=== PATIENT | female | born 1990 | race Caucasian/White ===

== ENCOUNTER 2017-01-11 19:57 | Emergency (ER) | payer OTHER ==
[2017-01-11] MEDS ORDERED: oxyCOD/ACETAMIN 5 MG/325 MG TABLET PO STA (20:54)
[2017-01-11] MEDS ORDERED: oxyCOD/ACETAMIN 5 MG/325 MG TABLET PO ONE (21:00)
--- NOTE | 2017-01-11 21:00 | XRAY Preliminary Report ---
Exam: XR Hand 3 View LT IMPRESSION: Normal hand radiography. [facility] SITE ID: [id number]
--- NOTE | 2017-01-11 21:01 | XRAY Preliminary Report ---
Exam: XR Wrist 4 View LT IMPRESSION: Normal wrist radiography. [facility] SITE ID: [id number]
--- NOTE | 2017-01-11 21:02 | XRAY Report ---
EXAM: LEFT HAND RADIOGRAPHY EXAM DATE: 01/11/2017 08:37 PM. CLINICAL HISTORY: Trauma, pain. COMPARISON: None. TECHNIQUE: 3 views. FINDINGS: Bones: Normal. No fractures or bone lesions. Joints: Normal. No subluxations. Soft Tissues: Unremarkable. IMPRESSION: Normal hand radiography. [facility] Referring Provider Line: [phone] SITE ID: [id number]
--- NOTE | 2017-01-11 21:03 | XRAY Report ---
EXAM: LEFT WRIST RADIOGRAPHY EXAM DATE: 01/11/2017 08:37 PM. CLINICAL HISTORY: Trauma, pain. COMPARISON: None. TECHNIQUE: 4 views. FINDINGS: Bones: Normal. No fractures or bone lesions. Joints: Normal. No subluxations. Soft Tissues: Unremarkable. IMPRESSION: Normal wrist radiography. [facility] Referring Provider Line: [phone] SITE ID: [id number]
--- NOTE | 2017-01-11 21:12 | ED Physician Documentation ---
PD HPI UPPER EXT INJURY - Stated complaint Stated Complaint: FELL LT HAND INJ - Chief complaint Chief Complaint: Ext Problem - History obtained from History obtained from: Patient - History of Present Illness Location: Left, Wrist, Hand Type of injury: Fall Where injury occurred: Home Timing - onset: How many hours ago (1) Timing - duration: Seconds Timing - details: Abrupt onset Improved by: Immobilization Associated symptoms: No: Weakness Similar symptoms before: Has not had sx before Recently seen: Not recently seen - Additonal information Additional information: Patient is a 26 year old female with no significant past medical history who is presenting to the emergency department for wrist pain. Patient states that she was walking her dog and it ran off, pulling her forward, landing on her two hands. Patient states that she had the worst pain in her ulnar side of her hand and wrist. Review of Systems Constitutional: denies: Fever, Chills Eyes: reports: Reviewed and negative Ears: denies: Drainage/discharge Nose: denies: Epistaxis Throat: denies: Dental pain / toothache Cardiac: reports: Reviewed and negative GI: denies: Nausea, Vomiting : reports: Reviewed and negative Skin: reports: Abrasion (s). denies: Laceration (s) Musculoskeletal: reports: Extremity pain, Joint pain, Extremity swelling Neurologic: reports: Numbness. denies: Difficulty speaking, Headache, Head injury, LOC Psychiatric: reports: Reviewed and negative Endocrine: reports: Reviewed and negative Immunocompromised: reports: Reviewed and negative PD PAST MEDICAL HISTORY - Past Medical History Past Medical History: No - Past Surgical History Past Surgical History: No - Present Medications Home Medications: Ambulatory Orders Medication Instructions Recorded Confirmed No Known Home Medications [No 01/11/17 01/11/17 Known Home Medications] - Allergies Allergies/Adverse Reactions: Allergies Allergy/AdvReac Type Severity Reaction Status Date / Time No Known Drug Allergies Allergy Verified 01/11/17 20:02 - Social History Does the pt smoke?: Yes Smoking Status: Light tobacco smoker Does the pt drink ETOH?: No Does the pt have substance abuse?: No - Immunizations Immunizations are current?: Yes - POLST Patient has POLST: No PD ED PE NORMAL - Vitals Vital signs reviewed: Yes - General General: Alert and oriented X 3, Well developed/nourished - HEENT HEENT: Atraumatic, PERRL - Neck Neck: No bony TTP - Cardiac Cardiac: RRR, No murmur - Respiratory Respiratory: No respiratory distress - Abdomen Abdomen: Non distended - Neuro Neuro: Alert and oriented X 3, No motor deficit, No sensory deficit - Psych Psych: Normal mood, Normal affect PD ED PE EXPANDED - Extremities Extremities: Abrasion (abrasions of both palms), Left wrist (tenderness and mild swelling of ulnar wrist, and hand pain. full rom), Motor intact, Sensory intact, Vascular intact, Tendon intact Results - Vitals Vitals: Vital Signs - 24 hr 01/11/17 19:59 Temperature 36.9 C Heart Rate 103 H Respiratory 18 Rate Blood Pressure 124/82 H O2 Saturation 100 Oxygen O2 Source Room air - Rads (name of study) left hand/wrist x-ray Radiology: Final report received (no acute fracture or dislocation) PD MEDICAL DECISION MAKING - ED course Complexity details: reviewed old records, reviewed results, re-evaluated patient , considered differential, d/w patient ED course: Patient was seen and examined at bedside. patient was treated with ice and a percocet and sent for imaging. when patient returned the results were reviewed. there was no acute fracture or dislocation. Patient's wounds were cleaned and patient was placed in a splint for comfort. Patient required no further work up and was stable for discharge with outpatient follow up. Departure - Departure Disposition: 01 Home, Self Care Clinical Impression: Left wrist sprain Condition: Good Instructions: ED Sprain Wrist Follow-Up: primary,care provider [Other] - As Needed Comments: Your x-rays today were within normal limits. there is no acute fracture or dislocation. You should continue to ice your wrist and take motrin or tylenol as needed for pain. If the pain persists for more than two weeks you should follow up with the base doctor. You can wear the brace as needed for comfort. Forms: Activity restrictions
[2017-01-11] MEDS ORDERED: BACITRACIN OINT TOP ONE (21:17)
[2017-01-11 21:20] VITALS: BP 107/72
== END 2017-01-11 21:23 | disposition home or self-care (01) ==
LOC: ED 19:57
DX: S63.502A Unspecified sprain of left wrist, initial encounter (principal); W19.XXXA Unspecified fall, initial encounter; Y92.009 Unspecified place in unspecified non-institutional (private) residence as the place of occurrence of the external cause; F17.200 Nicotine dependence, unspecified, uncomplicated
CPT/HCPCS: 73110; 73130; 99283; A9270

== ENCOUNTER 2017-02-23 08:36 | Outpatient (CLI) | payer OTHER ==
--- NOTE | 2017-02-23 11:14 | MRI Report ---
EXAM: LEFT WRIST MRI WITHOUT CONTRAST EXAM DATE: 02/23/2017 09:55 AM. CLINICAL HISTORY: Left wrist pain and fall 1.5 months ago. COMPARISON: None. TECHNIQUE: Multiplanar, multisequence T1-weighted and fluid-sensitive sequences of the wrist without contrast. Other: None. FINDINGS: Bones: There is a subacute appearing intra-articular comminuted fracture at the mid to distal aspects of the capitate. The dorsal distal fracture fragment appears to be displaced dorsally by approximate ly 1.5 mm. Marrow edema within most of the capitate. Mild marrow edema and small cyst within the trap ezoid. Mild marrow edema at the dorsal aspect of the triquetrum. Small subcortical cyst at the volar aspect of trapezium. Small subcortical cysts at the proximal aspect of the first metacarpal. No dislo cation. Cartilage: The articular cartilage is unremarkable. The triangular fibrocartilage complex is unremark able. Ligaments: The scapholunate and lunotriquetral ligaments are intact. The visualized other intrinsic, extrinsic and collateral ligaments are unremarkable. Tendons: The extensor compartment I through and flexor tendons are unremarkable. Musculature: No edema or fatty atrophy. Other: The contents of the carpal tunnel, including the median nerve, are unremarkable. Guyons canal is unremarkable. No ganglion cysts. No joint effusions. The subcutaneous tissues are unremarkable. IMPRESSION: 1. Subacute appearing intra-articular comminuted fracture at the mid to distal aspects of the capitat e. The dorsal distal fracture fragment is minimally displaced dorsally by approximately 1.5 mm. If wa rranted, a follow-up CT exam may be helpful to evaluate for areas of bony union between the fracture fragments. 2. Mild bone contusion within the trapezoid and triquetrum. [facility] MUSCULOSKELET[facility] RADIOLOGY SECTION Attempts to contact Dr. Clifton Garcia on 02/23/2017 were not successful. The report will be faxed to Dr. Garcia's office. Referring Provider Line: [phone] SITE ID: [id number]
== END 2017-02-23 08:37 | disposition home or self-care (01) ==
LOC: DI 08:36
PROVIDERS: ATTEND Radiology Diagnostic Radiology
DX: S62.132A Displaced fracture of capitate [os magnum] bone, left wrist, initial encounter for closed fracture (principal)

== ENCOUNTER 2018-02-12 19:27 | Emergency (ER) | payer OTHER ==
[2018-02-12 19:40] VITALS: BP 129/75
[2018-02-12 19:54] LABS: BILIRUBIN,URINE NEGATIVE (NEGATIVE); GLUCOSE, URINE (UA) NEGATIVE (NEGATIVE); KETONES,URINE (UA) NEGATIVE (NEGATIVE); LEUKOCYTE ESTERASE, URINE SMALL (NEGATIVE); NITRITE,URINE NEGATIVE (NEGATIVE); OCCULT BLOOD,URINE MODERATE (NEGATIVE); PROTEIN,URINE NEGATIVE (NEGATIVE); UROBILINOGEN,URINE 0.2 (NORMAL) E.U./dL (NORMAL)
[2018-02-12 19:56] LABS: CLARITY,URINE CLEAR (CLEAR)
[2018-02-12 19:57] LABS: HCG UR QUAL NEGATIVE
[2018-02-12 20:03] LABS: BACTERIA,URINE Many /HPF (None Seen); SQUAMOUS EPITHELIAL CELL,UR NONE SEEN (<= Few); WBC CLUMPS,URINE PRESENT
--- NOTE | 2018-02-12 20:06 | ED Physician Documentation ---
PD HPI FEMALE - Stated complaint Stated Complaint: ABD PX/FEM /URGENCY/VOMITING - Chief complaint Chief Complaint: Abd Pain - History obtained from History obtained from: Patient - History of Present Illness Timing - onset: Today (this morning) Timing - details: Abrupt onset Associated symptoms: Pelvic pain (suprapubic), Dysuria, Urinary frequency. 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 2014 - Past Surgical History Past Surgical History: No - Present Medications Home Medications: Ambulatory Orders Medication Instructions Recorded Confirmed Nitrofurantoin Monohyd/M-Cryst 100 mg PO BID #10 capsule 02/12/18 [Macrobid 100 mg Capsule] - Allergies Allergies/Adverse Reactions: Allergies Allergy/AdvReac Type Severity Reaction Status Date / Time No Known Drug Allergies Allergy Verified 02/12/18 19:40 - Social History Does the pt smoke?: Yes Smoking Status: Current every day smoker Does the pt drink ETOH?: No Does the pt have substance abuse?: No - Immunizations Immunizations are current?: Yes - POLST Patient has POLST: No PD ED PE NORMAL - Vitals Vital signs reviewed: Yes - General General: Alert and oriented X 3, No acute distress, Well developed/nourished - Abdomen Abdomen: Soft, Non tender - Back Back: No CVA TTP Results - Vitals Vitals: Vital Signs - 24 hr 02/12/18 19:34 Temperature 36.6 C Heart Rate 71 Respiratory 16 Rate Blood Pressure 129/75 O2 Saturation 100 Oxygen O2 Source Room air - Labs Labs: Laboratory Tests 02/12/18 02/12/18 19:37 19:37 Urine Color LIGHT YELLOW Urine Clarity CLEAR Urine pH 6.0 Ur Specific [place] <=1.005 <=1.005 Urine Protein NEGATIVE Urine Glucose (UA) NEGATIVE Urine Ketones NEGATIVE Urine Occult Blood MODERATE H Urine Nitrite NEGATIVE Urine Bilirubin NEGATIVE Urine Urobilinogen 0.2 (NORMAL) Ur Leukocyte Esterase SMALL H Urine RBC 11-25 H Urine WBC >25 H Urine WBC Clumps PRESENT Ur Squamous Epith Cells NONE SEEN Urine Bacteria Many H Ur Microscopic Review INDICATED Urine Culture Comments INDICATED Urine HCG, Qual NEGATIVE PD MEDICAL DECISION MAKING - ED course Complexity details: reviewed results, considered differential, d/w patient Departure - Departure Disposition: 01 Home, Self Care Clinical Impression: Cystitis Condition: Good Instructions: ED UTI Cystitis Female Follow-Up: [facility] [Provider Group] [facility] [Provider Group] Prescriptions: Nitrofurantoin Monohyd/M-Cryst [Macrobid 100 mg Capsule] 100 mg PO BID #10 capsule Discharge Date/Time: 02/12/18 20:23
[2018-02-12] MEDS ORDERED: NITROFURANTOIN MACRO 100 MG CAPSULE PO STA (20:14)
[2018-02-12] MEDS ORDERED: PHENAZOPYRIDINE 100 MG TABLET PO STA (20:14)
== END 2018-02-12 20:23 | disposition home or self-care (01) ==
LOC: ED 19:27
DX: N30.90 Cystitis, unspecified without hematuria (principal); F17.200 Nicotine dependence, unspecified, uncomplicated
CPT/HCPCS: 81001; 81025; 87086; 99283; A9270; 81003; 87181

== ENCOUNTER 2018-06-08 21:54 | Emergency (ER) | payer OTHER ==
[2018-06-08 22:22] LABS: BILIRUBIN,URINE NEGATIVE (NEGATIVE); GLUCOSE, URINE (UA) NEGATIVE (NEGATIVE); KETONES,URINE (UA) NEGATIVE (NEGATIVE); LEUKOCYTE ESTERASE, URINE LARGE (NEGATIVE); NITRITE,URINE NEGATIVE (NEGATIVE); OCCULT BLOOD,URINE MODERATE (NEGATIVE); PH,URINE 7.5 PH (5.0-7.5); PROTEIN,URINE NEGATIVE (NEGATIVE); UROBILINOGEN,URINE 0.2 (NORMAL) E.U./dL (NORMAL)
[2018-06-08 22:32] LABS: BACTERIA,URINE Rare /HPF (None Seen); CLARITY,URINE CLEAR (CLEAR); HCG UR QUAL NEGATIVE; RBC,URINE 0-5 /HPF (0-5); SQUAMOUS EPITHELIAL CELL,UR NONE SEEN (<= Few); WBC CLUMPS,URINE PRESENT
[2018-06-08] MEDS ORDERED: AMOX/CLAV 875 MG/125 MG TABLET PO STA (22:55)
[2018-06-08] MEDS ORDERED: PHENAZOPYRIDINE 100 MG TABLET PO STA (22:55)
--- NOTE | 2018-06-08 23:02 | ED Physician Documentation ---
PD HPI FEMALE - Stated complaint Stated Complaint: POSS KIDNEY INF - Chief complaint Chief Complaint: UTI - History obtained from History obtained from: Patient - History of Present Illness Timing - onset: Today Timing - duration: Hours (5) Timing - details: Abrupt onset, Still present Associated symptoms: Dysuria, Urinary frequency Contributing factors: No: Similar symptoms before: Diagnosis (pyelo) Recently seen: Emergency Dept - Additional information Additional information: 28-year-old female with a previous history of urinary tract infection and a recent history of pyelonephritis 1 month ago seen at [facility] has developed urinary symptoms again. She notes the symptoms present for about 5 hours and she states the symptoms are obvious and irritating. She is been into the bathroom 5 times and she is been to the emergency department. She denies any pain in her back this time and she denies any nausea or vomiting. She denies any chance of . 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 - Past Surgical History Past Surgical History: Yes HEENT: Tonsil/Adenoidectomy - Present Medications Home Medications: Ambulatory Orders Medication Instructions Recorded Confirmed Amox/Clav 875/125 [Augmentin] 1 each PO Q12H #10 tablet 06/08/18 - Allergies Allergies/Adverse Reactions: Allergies Allergy/AdvReac Type Severity Reaction Status Date / Time No Known Drug Allergies Allergy Verified 06/08/18 22:09 - Social History Does the pt smoke?: No Smoking Status: Never smoker Does the pt drink ETOH?: No Does the pt have substance abuse?: No - Immunizations Immunizations are current?: Yes - POLST Patient has POLST: No PD ED PE NORMAL - Vitals Vital signs reviewed: Yes (hypertensive) - General General: Alert and oriented X 3, No acute distress, Well developed/nourished - HEENT HEENT: Atraumatic, PERRL, EOMI - Neck Neck: Supple, no meningeal sign - Cardiac Cardiac: RRR, No murmur - Respiratory Respiratory: No respiratory distress, Clear bilaterally - Abdomen Abdomen: Soft, Non tender - Back Back: No CVA TTP, No spinal TTP - Derm Derm: Normal color, Warm and dry, No rash - Extremities Extremities: No deformity, No edema - Neuro Neuro: Alert and oriented X 3, bale piler 2-12 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 YELLOW Urine Clarity CLEAR Urine pH 7.5 Ur Specific [place] <=1.005 <=1.005 Urine Protein NEGATIVE Urine Glucose (UA) NEGATIVE Urine Ketones NEGATIVE Urine Occult Blood MODERATE H Urine Nitrite NEGATIVE Urine Bilirubin NEGATIVE Urine Urobilinogen 0.2 (NORMAL) Ur Leukocyte Esterase LARGE H Urine RBC 0-5 Urine WBC 11-25 H Urine WBC Clumps PRESENT Ur Squamous Epith Cells NONE SEEN Urine Bacteria Rare Ur Microscopic Review INDICATED Urine Culture Comments INDICATED Urine HCG, Qual NEGATIVE PD MEDICAL DECISION MAKING - ED course Complexity details: considered differential, d/w patient ED course: Previously well 28-year-old female with a history of urinary tract infection has developed signs and symptoms this evening and has urinary tract infection on evaluation of the urinary sediment under the microscope. She is administered Augmentin as she has had a prior extended spectrum beta-lactamase positive E. coli. Departure - Departure Disposition: 01 Home, Self Care Clinical Impression: Urinary tract infection Qualifiers: Urinary tract infection type: acute cystitis Hematuria presence: without hematuria Qualified Code(s): N30.00 - Acute cystitis without hematuria Condition: Stable Instructions: ED UTI Cystitis Female Follow-Up: [facility] [Provider Group] Prescriptions: Amox/Clav 875/125 [Augmentin] 1 each PO Q12H #10 tablet
[2018-06-08 23:12] VITALS: BP 120/82
== END 2018-06-08 23:19 | disposition home or self-care (01) ==
LOC: ED 21:54
DX: N30.00 Acute cystitis without hematuria (principal)
CPT/HCPCS: 81001; 81025; 87077; 87086; 87181; 99283; A9270; 81003

== ENCOUNTER 2019-02-20 13:14 | Emergency (ER) | payer OTHER ==
[2019-02-20 13:33] VITALS: BP 131/71
--- NOTE | 2019-02-20 15:55 | ED Physician Documentation ---
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 - Past Surgical History Past Surgical History: Yes HEENT: Tonsil/Adenoidectomy - Present Medications Home Medications: Ambulatory Orders Medication Instructions Recorded Confirmed Amox/Clav 875/125 [Augmentin] 1 each PO Q12H #10 tablet 06/08/18 - Allergies Allergies/Adverse Reactions: Allergies Allergy/AdvReac Type Severity Reaction Status Date / Time No Known Drug Allergies Allergy Verified 06/08/18 22:09 - Social History Does the pt smoke?: No Smoking Status: Never smoker Does the pt drink ETOH?: No Does the pt have substance abuse?: No - Immunizations Immunizations are current?: Yes - POLST Patient has POLST: No PD ED PE NORMAL - Vitals Vital signs reviewed: Yes - General General: Alert and oriented X 3, No acute distress - Extremities Extremities: Other (Very light shallow laceration just through the skin on the dorsum of the right thumb measuring 1.5 cm.) - Neuro Neuro: Alert and oriented X 3, Normal speech Results - Vitals Vitals: Vital Signs - 24 hr 02/20/19 13:30 Temperature 36.9 C Heart Rate 77 Respiratory 16 Rate Blood Pressure 131/71 H O2 Saturation 100 Oxygen O2 Source Room air Procedures - Laceration (location) Right thumb Length in cm: 1.5 Wound type: Linear, Superficial Wound Preparation: Irrigated copiously NS Skin layer closure: Dermabond Other: Tetanus UTD Complexity: Simple Departure - Departure Disposition: 01 Home, Self Care Clinical Impression: Laceration of right thumb Qualifiers: Encounter type: initial encounter Damage to nail status: without damage Foreign body presence: without foreign body Qualified Code(s): S61.011A - Laceration without foreign body of right thumb without damage to nail, initial encounter Condition: Good Record reviewed to determine appropriate education?: Yes Instructions: ED Laceration Ext Skin Glue Comments: Your blood pressure was elevated today on check into the emergency department. This does not mean that you have hypertension, it is a common phenomenon to come to the emergency department and have elevated blood pressure. I recommend that you see your primary care physician within the week to have it rechecked when you are feeling better. Discharge Date/Time: 02/20/19 16:16
== END 2019-02-20 16:16 | disposition home or self-care (01) ==
LOC: ED 13:14
DX: S61.011A Laceration without foreign body of right thumb without damage to nail, initial encounter (principal); W45.8XXA Other foreign body or object entering through skin, initial encounter; Y93.89 Activity, other specified; Y92.89 Other specified places as the place of occurrence of the external cause; R03.0 Elevated blood-pressure reading, without diagnosis of hypertension
CPT/HCPCS: 12001; 99281

== ENCOUNTER 2019-04-17 08:39 | Emergency (ER) | payer OTHER ==
[2019-04-17 08:52] VITALS: BP 125/68
--- NOTE | 2019-04-17 09:04 | ED Physician Documentation ---
PD HPI FEMALE - Stated complaint Stated Complaint: FEMALE - Chief complaint Chief Complaint: UTI - History obtained from History obtained from: Patient - History of Present Illness Timing - onset: Last night Timing - details: Abrupt onset Associated symptoms: Dysuria, Urinary frequency. 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 - Past Surgical History Past Surgical History: Yes HEENT: Tonsil/Adenoidectomy - Present Medications Home Medications: Ambulatory Orders Medication Instructions Recorded Confirmed Naproxen 375 mg PO BID #20 tablet 04/17/19 Phenazopyridine HCl [Pyridium] 100 mg PO TID PRN #15 tablet 04/17/19 Sulfamethox/Trimeth 800/160 1 each PO BID #10 tablet 04/17/19 [Bactrim Ds 800/160] - Allergies Allergies/Adverse Reactions: Allergies Allergy/AdvReac Type Severity Reaction Status Date / Time No Known Drug Allergies Allergy Verified 04/17/19 08:52 - Social History Does the pt smoke?: No Smoking Status: Never smoker Does the pt drink ETOH?: No Does the pt have substance abuse?: No - Immunizations Immunizations are current?: Yes - POLST Patient has POLST: No PD ED PE NORMAL - Vitals Vital signs reviewed: Yes - General General: Alert and oriented X 3, No acute distress, Well developed/nourished - Abdomen Abdomen: Soft, Non tender - Female Female : Deferred - Back Back: No CVA TTP - Derm Derm: Normal color Results - Vitals Vitals: Vital Signs - 24 hr 04/17/19 08:49 Temperature 36.2 C L Heart Rate 71 Respiratory 16 Rate Blood Pressure 125/68 O2 Saturation 99 Oxygen O2 Source Room air - Labs Labs: Laboratory Tests 04/17/19 09:03 Urine Color YELLOW Urine Clarity CLEAR Urine pH 6.0 Ur Specific [place] <=1.005 Urine Protein TRACE Urine Glucose (UA) NEGATIVE Urine Ketones NEGATIVE Urine Occult Blood MODERATE H Urine Nitrite NEGATIVE Urine Bilirubin NEGATIVE Urine Urobilinogen 0.2 (NORMAL) Ur Leukocyte Esterase SMALL H Urine RBC 6-10 H Urine WBC 11-25 H Ur Squamous Epith Cells FEW Squamous Urine Bacteria Rare Ur Microscopic Review INDICATED Urine Culture Comments INDICATED Urine HCG, Qual NEGATIVE PD MEDICAL DECISION MAKING - ED course Complexity details: considered differential, d/w patient Departure - Departure Disposition: 01 Home, Self Care Clinical Impression: Dysuria UTI (urinary tract infection) Qualifiers: Urinary tract infection type: acute cystitis Hematuria presence: without hematuria Qualified Code(s): N30.00 - Acute cystitis without hematuria Condition: Stable Record reviewed to determine appropriate education?: Yes Instructions: ED UTI Cystitis Female Follow-Up: [facility] [Provider Group] Prescriptions: Naproxen 375 mg PO BID #20 tablet Phenazopyridine HCl [Pyridium] 100 mg PO TID PRN #15 tablet PRN Reason: Abdominal Pain Sulfamethox/Trimeth 800/160 [Bactrim Ds 800/160] 1 each PO BID #10 tablet Comments: The urine test looks consistent with a UTI/bladder infection. Take Bactrim antibiotic twice daily for 5 days. Pyridium can be used for urinary discomfort 3 times a day for the first 2 to 3 days. Add naproxen anti-inflammatory if needed for pain or discomfort. Stay well-hydrated. Recheck if not improving well over the next few days. Discharge Date/Time: 04/17/19 09:46
[2019-04-17 09:16] LABS: BILIRUBIN,URINE NEGATIVE (NEGATIVE); GLUCOSE, URINE (UA) NEGATIVE (NEGATIVE); KETONES,URINE (UA) NEGATIVE (NEGATIVE); LEUKOCYTE ESTERASE, URINE SMALL (NEGATIVE); NITRITE,URINE NEGATIVE (NEGATIVE); OCCULT BLOOD,URINE MODERATE (NEGATIVE); PROTEIN,URINE TRACE mg/dL (NEGATIVE); UROBILINOGEN,URINE 0.2 (NORMAL) E.U./dL (NORMAL)
[2019-04-17 09:17] LABS: CLARITY,URINE CLEAR (CLEAR); HCG UR QUAL NEGATIVE
[2019-04-17] MEDS ORDERED: SULFAMETH/TRIMETH DS 800/160 MG TABLET PO STA (09:24)
[2019-04-17] MEDS ORDERED: NAPROXEN 250 MG TABLET PO STA (09:24)
[2019-04-17] MEDS ORDERED: PHENAZOPYRIDINE 100 MG TABLET PO STA (09:24)
[2019-04-17 09:30] LABS: BACTERIA,URINE Rare /HPF (None Seen); SQUAMOUS EPITHELIAL CELL,UR FEW Squamous (<= Few)
== END 2019-04-17 09:46 | disposition home or self-care (01) ==
LOC: ED 08:39
DX: N30.00 Acute cystitis without hematuria (principal)
CPT/HCPCS: 81001; 81025; 87086; 87181; 99283; A9270; 81003

== ENCOUNTER 2020-04-17 20:12 | Emergency (ER) | payer OTHER ==
[2020-04-17] MEDS ORDERED: HYDROcod/ACETAM 5/325 MG TABLET PO STA (20:29)
--- NOTE | 2020-04-17 20:30 | ED Physician Documentation ---
PD HPI ABD PAIN - Stated complaint Stated Complaint: BACK PX,NAUSEA,LIGHTHEADED,FEM - Chief complaint Chief Complaint: Abd Pain - History obtained from History obtained from: Patient - Additional information Additional information: 30-year-old woman with somewhat frequent UTIs maybe once a year presents with left flank pain and malodorous urine with frequency for about 3 days with chills but no measured fevers. Nauseous but no vomiting. Review of Systems Ten Systems: 10 systems reviewed and negative Constitutional: denies: Fever, Chills Cardiac: reports: Reviewed and negative Respiratory: reports: Reviewed and negative PD PAST MEDICAL HISTORY - Past Medical History Cardiovascular: None Respiratory: None Neuro: None Endocrine/Autoimmune: None PALS SPECIALIST: Other - Past Surgical History Past Surgical History: Yes HEENT: Tonsil/Adenoidectomy - Present Medications Home Medications: Ambulatory Orders Medication Instructions Recorded Confirmed Naproxen 375 mg PO BID #20 tablet 04/17/19 Phenazopyridine HCl [Pyridium] 100 mg PO TID PRN #15 tablet 04/17/19 Sulfamethox/Trimeth 800/160 1 each PO BID #10 tablet 04/17/19 [Bactrim Ds 800/160] HYDROcod/ACETAM 5/325 [[place] 5/325] 1 - 2 tab PO Q6H PRN #10 tablet 04/17/20 Sulfamethox/Trimeth 800/160 1 each PO BID #20 tablet 04/17/20 [Bactrim Ds 800/160] - Allergies Allergies/Adverse Reactions: Allergies Allergy/AdvReac Type Severity Reaction Status Date / Time No Known Drug Allergies Allergy Verified 04/17/20 20:16 - Social History Does the pt smoke?: No Smoking Status: Never smoker Does the pt drink ETOH?: No Does the pt have substance abuse?: No - Immunizations Immunizations are current?: Yes - POLST Patient has POLST: No PD ED PE NORMAL - Vitals Vital signs reviewed: Yes - General General: Alert and oriented X 3, No acute distress - Abdomen Abdomen: Soft, Other (Mild left CVA tenderness, no abdominal tenderness.) - Derm Derm: Warm and dry, No rash - Extremities Extremities: No edema, No calf tenderness / cord - Neuro Neuro: Alert and oriented X 3, Normal speech Results - Vitals Vitals: Vital Signs - 24 hr 04/17/20 04/17/20 20:17 20:29 Temperature 36.5 C 36.5 C Heart Rate 70 70 Respiratory 16 16 Rate Blood Pressure 133/80 H 133/80 H O2 Saturation 100 100 Oxygen O2 Source Room air - Labs Labs: Laboratory Tests 04/17/20 20:24 Urine Color YELLOW Urine Clarity HAZY Urine pH 6.0 Ur Specific [place] <=1.005 Urine Protein NEGATIVE Urine Glucose (UA) NEGATIVE Urine Ketones NEGATIVE Urine Occult Blood TRACE-LYSE Urine Nitrite NEGATIVE Urine Bilirubin NEGATIVE Urine Urobilinogen 0.2 (NORMAL) Ur Leukocyte Esterase SMALL H Urine RBC 6-10 H Urine WBC >25 H Ur Squamous Epith Cells FEW Squamous Urine Bacteria Many H Ur Microscopic Review INDICATED Urine Culture Comments INDICATED Urine HCG, Qual NEGATIVE Departure - Departure Disposition: Home, Self Care Clinical Impression: Pyelonephritis Condition: Good Record reviewed to determine appropriate education?: Yes Instructions: ED Kidney Infec Female Prescriptions: Sulfamethox/Trimeth 800/160 [Bactrim Ds 800/160] 1 each PO BID #20 tablet HYDROcod/ACETAM 5/325 [[place] 5/325] 1 - 2 tab PO Q6H PRN #10 tablet PRN Reason: Pain Comments: We will culture your urine, if a resistant organism is identified we will call you in approximately 2 to 3 days time. Return if worsening in the interim or if new symptoms develop. You should be improving in the next 2 to 3 days though. Do not drink or drive while taking prescription pain medication. If pain is mild you can take Tylenol or ibuprofen. Drink plenty of water.
[2020-04-17 20:38] LABS: BILIRUBIN,URINE NEGATIVE (NEGATIVE); GLUCOSE, URINE (UA) NEGATIVE (NEGATIVE); KETONES,URINE (UA) NEGATIVE (NEGATIVE); LEUKOCYTE ESTERASE, URINE SMALL (NEGATIVE); NITRITE,URINE NEGATIVE (NEGATIVE); OCCULT BLOOD,URINE TRACE-LYSE (NEGATIVE); PROTEIN,URINE NEGATIVE (NEGATIVE); UROBILINOGEN,URINE 0.2 (NORMAL) E.U./dL (NORMAL)
[2020-04-17 20:45] LABS: CLARITY,URINE HAZY (CLEAR); HCG UR QUAL NEGATIVE
[2020-04-17 20:46] LABS: BACTERIA,URINE Many /HPF (None Seen); SQUAMOUS EPITHELIAL CELL,UR FEW Squamous (<= Few)
[2020-04-17] MEDS ORDERED: HYDROcod/ACET 5/325 Prepack 4 PO STA (21:05)
[2020-04-17] MEDS ORDERED: SULFAMETH/TRIMETH DS 800/160 MG TABLET PO STA (21:05)
[2020-04-17 21:16] VITALS: BP 128/84
== END 2020-04-17 21:15 | disposition home or self-care (01) ==
LOC: ED 20:12
DX: N12 Tubulo-interstitial nephritis, not specified as acute or chronic (principal)
CPT/HCPCS: 81001; 81025; 87086; 87181; 99283; 99284; A9270; 81003

== ENCOUNTER 2022-04-27 15:48 | Outpatient (CLI) | payer OTHER ==
--- NOTE | 2022-04-27 17:36 | MRI Report ---
PROCEDURE: LUMBAR SPINE WO INDICATIONS: RADICULOPATHY TECHNIQUE: Noncontrast sagittal T1 spin echo and T2 fast echo, sagittal STIR, axial T1 and T2 fast spin echo thr ough the lumbar spine. In cases with scoliosis, additional coronal T2 fast spin echo may be performe d. COMPARISON: None. FINDINGS: Image quality: Excellent. Alignment and Curvature: There is normal bony alignment. Bone Marrow: Marrow is of normal overall signal. No acute vertebral body compression fractures. Spinal Cord: Conus medullaris terminates at the T12/L1 level. Visualized cord demonstrates normal s ignal and size. Paraspinous Soft Tissues: No paravertebral masses. T12-L1: Moderate and L4-L5. Disc desiccation and height loss. No canal stenosis. No neural foraminal stenosis. L1-L2: Mild disc desiccation and height loss. Broad based disc bulge. Mild facet and ligamentum fl avum hypertrophy. No canal stenosis. No foraminal stenosis. L2-L3: Mild disc desiccation and height loss. Mild facet and ligamentum flavum hypertrophy. No can al stenosis. No neural foraminal stenosis. L3-L4: Mild disc desiccation and height loss. Mild facet and ligamentum flavum hypertrophy. No luisa l stenosis. Mild bilateral foraminal stenosis. L4-L5: Moderate disc desiccation and height loss. Broad based disc bulge. There is a subtle right l ateral disc bulge which likely abuts the exiting nerve root (series 6/image 37). Focal high intensity zone is present in this region. Moderate facet and ligamentum flavum hypertrophy. No canal stenosis. No foraminal stenosis. L5-S1: Moderate bilateral facet sclerosis. Otherwise normal appearance. IMPRESSION: 1. Disc desiccation and height loss throughout the lumbar spine most severe at L1-L2 and L4-L5. 2. No canal stenosis or significant foraminal narrowing of the lumbar spine. 3. Multilevel facet and ligamentum flavum hypertrophy most severe at L4-5. 4. Right lateral broad-based disc bulge at L4-5 which abuts the exiting nerve root as above. 5. Focal high intensity zone within the right lateral L4-5 disc suggesting an annular fibrosis tear. Reviewed by: Elaine Treviño MD on 04/27/2022 5:35 PM PST Approved by: Elaine Treviño MD on 04/27/2022 5:35 PM PST Station ID: [id number]
== END 2022-04-27 15:49 | disposition home or self-care (01) ==
LOC: DI 15:48
PROVIDERS: ATTEND Student in an Organized Health Care Education/Training Program
DX: M51.36 Other intervertebral disc degeneration, lumbar region (principal); M47.816 Spondylosis without myelopathy or radiculopathy, lumbar region; M47.817 Spondylosis without myelopathy or radiculopathy, lumbosacral region

== ENCOUNTER 2023-03-25 08:32 | Emergency (ER) | payer OTHER ==
[2023-03-25 08:49] VITALS: BP 133/75; O2SAT 100
--- NOTE | 2023-03-25 08:50 | ED Physician Documentation ---
PD HPI ABD PAIN - Stated complaint Stated Complaint: - Chief complaint Chief Complaint: Abd Pain - History obtained from History obtained from: Patient - History of Present Illness Timing - onset: How many days ago (2-3) Timing - duration: Days (2-3) Timing - details: Gradual onset, Still present in ED Quality: Aching, Pain Location: Suprapubic Radiation: Left flank Associated symptoms: Dysuria. No: Fever, Nausea, Diarrhea, Vaginal dc Similar symptoms before: Diagnosis (similar to prior UTIs, many in the past since teenage. No prior kidney stones. Remote BV but not having current vaginitis symptoms.) Review of Systems Constitutional: denies: Fever, Chills Nose: denies: Rhinorrhea / runny nose, Congestion Throat: denies: Sore throat Respiratory: denies: Cough GI: denies: Nausea, Vomiting, Diarrhea : reports: Dysuria, Frequency, LMP (ending currently). 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 - Past Surgical History Past Surgical History: Yes HEENT: Tonsil/Adenoidectomy - Present Medications Home Medications: Ambulatory Orders Medication Instructions Recorded Confirmed Naproxen 375 mg PO BID #20 tablet 04/17/19 Phenazopyridine HCl [Pyridium] 100 mg PO TID PRN #15 tablet 04/17/19 Sulfamethox/Trimeth 800/160 1 each PO BID #10 tablet 04/17/19 [Bactrim Ds 800/160] HYDROcod/ACETAM 5/325 [[place] 5/325] 1 - 2 tab PO Q6H PRN #10 tablet 04/17/20 Sulfamethox/Trimeth 800/160 1 each PO BID #20 tablet 04/17/20 [Bactrim Ds 800/160] Ibuprofen [Motrin] 600 mg PO TID PRN #25 tab 03/25/23 Phenazopyridine HCl [Pyridium] 100 mg PO TID PRN #15 tablet 03/25/23 cephALEXin [Keflex] 500 mg PO TID #20 cap 03/25/23 - Allergies Allergies/Adverse Reactions: Allergies Allergy/AdvReac Type Severity Reaction Status Date / Time No Known Drug Allergies Allergy Verified 04/17/20 20:16 - Social History Does the pt smoke?: No Smoking Status: Never smoker Does the pt drink ETOH?: No Does the pt have substance abuse?: No - Immunizations Immunizations are current?: Yes - POLST Patient has POLST: No PD ED PE NORMAL - Vitals Vital signs reviewed: Yes - General General: Alert and oriented X 3, No acute distress, Well developed/nourished - Abdomen Abdomen: Soft, Non tender - Female Female : Deferred - Rectal Rectal: Deferred - Back Back: Other (mild left CVA tender to percussion. ) Results - Vitals Vitals: Vital Signs - 24 hr 03/25/23 08:39 Temperature 36.2 C L Heart Rate 88 Respiratory 18 Rate Blood Pressure 133/75 H O2 Saturation 100 Oxygen O2 Source Room air - Labs Labs: Laboratory Tests 03/25/23 08:56 Urine Color YELLOW Urine Clarity CLEAR Urine pH 6.5 Ur Specific [place] <=1.005 Urine Protein NEGATIVE Urine Glucose (UA) NEGATIVE Urine Ketones NEGATIVE Urine Occult Blood TRACE-INTA Urine Nitrite POSITIVE H Urine Bilirubin NEGATIVE Urine Urobilinogen 0.2 (NORMAL) Ur Leukocyte Esterase SMALL H Urine RBC 0-5 Urine WBC 11-25 H Ur Squamous Epith Cells MOD Squamous H Urine Bacteria Moderate H Ur Microscopic Review INDICATED Urine Culture Comments NOT INDICATED Urine HCG, Qual NEGATIVE PD Medical Decision Making - ED course Complexity details: reviewed results (positive nitrates, leuks, WBCs, baceria, with some squams. Culture indicated. HCG neg. ), considered differential (symptoms c/w UTI and familar to pt from prior UTIs. No vaginal discharge. UA c/w UTI with nitrates, WBCs, bacteria. Some squams. HCG neg. Can treat at UTI. ) , d/w patient Departure - Departure Disposition: 01 Home, Self Care Clinical Impression: Dysuria, Flank pain, UTI (urinary tract infection) Condition: Stable Record reviewed to determine appropriate education?: Yes Instructions: ED UTI Cystitis Female Prescriptions: cephALEXin [Keflex] 500 mg PO TID #20 cap Ibuprofen [Motrin] 600 mg PO TID PRN #25 tab PRN Reason: Pain Phenazopyridine HCl [Pyridium] 100 mg PO TID PRN #15 tablet PRN Reason: Abdominal Pain Comments: Your urine sample does show signs of infection including white cells, bacteria, nitrates (a metabolism product of bacteria). This does correspond with your symptoms enough to seem like a urinary tract infection. We can treat her with cephalexin antibiotic as well as the phenazopyridine to help with symptoms in the short-term and anti-inflammatory such as ibuprofen to help with pains and inflammation. I sent prescriptions to your preferred pharmacy. I would anticipate improvement over the next 2 to 3 days and resolved by 3 to 5 days or sooner. Recheck if not improved well over the next few days. The labs should be doing a urine culture on your urine to verify the bacteria causing this. This will result in couple of days and will help us if we need to change your antibiotic choice. Otherwise if the current antibiotic is appropriate, we usually do not notify you. You can look up the results on the patient portal. Recheck if not improved will and the above anticipated timeline. Stay well- hydrated. Forms: PCP List Discharge Date/Time: 03/25/23 09:36
[2023-03-25 09:03] LABS: BILIRUBIN,URINE NEGATIVE (NEGATIVE); GLUCOSE, URINE (UA) NEGATIVE (NEGATIVE); KETONES,URINE (UA) NEGATIVE (NEGATIVE); LEUKOCYTE ESTERASE, URINE SMALL (NEGATIVE); NITRITE,URINE POSITIVE (NEGATIVE); OCCULT BLOOD,URINE TRACE-INTA (NEGATIVE); PH,URINE 6.5 PH (5.0-7.5); PROTEIN,URINE NEGATIVE (NEGATIVE); UROBILINOGEN,URINE 0.2 (NORMAL) E.U./dL (NORMAL)
[2023-03-25 09:16] LABS: BACTERIA,URINE Moderate /HPF (None Seen); CLARITY,URINE CLEAR (CLEAR); HCG UR QUAL NEGATIVE; RBC,URINE 0-5 /HPF (0-5); SQUAMOUS EPITHELIAL CELL,UR MOD Squamous (<= Few)
[2023-03-25] MEDS ORDERED: cephALEXin 250 MG CAPSULE PO STA (09:19)
[2023-03-25] MEDS ORDERED: PHENAZOPYRIDINE 100 MG TABLET PO STA (09:19)
== END 2023-03-25 09:36 | disposition home or self-care (01) ==
LOC: ED 08:32
DX: N39.0 Urinary tract infection, site not specified (principal); R10.32 Left lower quadrant pain; Z87.440 Personal history of urinary (tract) infections; Z79.899 Other long term (current) drug therapy
CPT/HCPCS: 81001; 81003; 81025; 87086; 99283

== ENCOUNTER 2023-06-04 13:41 | Emergency (ER) | payer OTHER ==
[2023-06-04 13:50] VITALS: BP 134/67; O2SAT 100
[2023-06-04 14:26] LABS: BILIRUBIN,URINE NEGATIVE (NEGATIVE); GLUCOSE, URINE (UA) NEGATIVE (NEGATIVE); KETONES,URINE (UA) NEGATIVE (NEGATIVE); LEUKOCYTE ESTERASE, URINE NEGATIVE (NEGATIVE); NITRITE,URINE NEGATIVE (NEGATIVE); OCCULT BLOOD,URINE NEGATIVE (NEGATIVE); PH,URINE 6.5 PH (5.0-7.5); PROTEIN,URINE NEGATIVE (NEGATIVE); UROBILINOGEN,URINE 0.2 (NORMAL) E.U./dL (NORMAL)
[2023-06-04 14:27] LABS: CLARITY,URINE CLEAR (CLEAR)
[2023-06-04 14:28] LABS: HCG UR QUAL NEGATIVE
--- NOTE | 2023-06-04 14:54 | ED Physician Documentation ---
PD HPI FEMALE - Stated complaint Stated Complaint: - Chief complaint Chief Complaint: UTI - History obtained from History obtained from: Patient - History of Present Illness Timing - onset: Yesterday Timing - duration: Days (2) Timing - details: Gradual onset Pain level max: 4 Pain level max: 4 Associated symptoms: Dysuria, Urinary frequency. No: Fever, Abdominal pain, Back pain, Pelvic pain, Vaginal pain, Vaginal bleeding, Vaginal discharge, Genital sore/lesion Contributing factors: No: Exposed to STD Similar symptoms before: Diagnosis (chronic UTI's) Review of Systems Constitutional: denies: Fever, Chills Respiratory: denies: Cough GI: denies: Nausea, Vomiting, Diarrhea : reports: Dysuria, Frequency (states urinating 2-3 times in 30 mins), Hesitancy Skin: denies: Rash Musculoskeletal: denies: Neck pain, Back pain Neurologic: denies: Headache PD PAST MEDICAL HISTORY - Past Medical History Cardiovascular: None Respiratory: None Neuro: None Endocrine/Autoimmune: None LAUNDRY AID: Other - Past Surgical History Past Surgical History: Yes HEENT: Tonsil/Adenoidectomy - Present Medications Home Medications: Ambulatory Orders Medication Instructions Recorded Confirmed Naproxen 375 mg PO BID #20 tablet 04/17/19 Phenazopyridine HCl [Pyridium] 100 mg PO TID PRN #15 tablet 04/17/19 Sulfamethox/Trimeth 800/160 1 each PO BID #10 tablet 04/17/19 [Bactrim Ds 800/160] HYDROcod/ACETAM 5/325 [[place] 5/325] 1 - 2 tab PO Q6H PRN #10 tablet 04/17/20 Sulfamethox/Trimeth 800/160 1 each PO BID #20 tablet 04/17/20 [Bactrim Ds 800/160] Ibuprofen [Motrin] 600 mg PO TID PRN #25 tab 03/25/23 Phenazopyridine HCl [Pyridium] 100 mg PO TID PRN #15 tablet 03/25/23 cephALEXin [Keflex] 500 mg PO TID #20 cap 03/25/23 Fluconazole 150 mg PO ONCE #2 tablet 06/04/23 Nitrofurantoin [Macrobid] 100 mg PO BID #10 cap 06/04/23 Phenazopyridine HCl [Pyridium] 200 mg PO TID PRN #6 tablet 06/04/23 - Allergies Allergies/Adverse Reactions: Allergies Allergy/AdvReac Type Severity Reaction Status Date / Time duloxetine [From Cymbalta] Allergy Rash Verified 06/04/23 13:45 - Social History Does the pt smoke?: No Smoking Status: Never smoker Does the pt drink ETOH?: No Does the pt have substance abuse?: No - Immunizations Immunizations are current?: Yes - POLST Patient has POLST: No PD ED PE NORMAL - Vitals Vital signs reviewed: Yes - General General: Alert and oriented X 3 - HEENT HEENT: Moist mucous membranes - Neck Neck: Supple, no meningeal sign - Cardiac Cardiac: RRR - Respiratory Respiratory: No respiratory distress, Clear bilaterally - Female Female : Pt declined - Back Back: No CVA TTP, No spinal TTP - Derm Derm: Warm and dry - Neuro Neuro: Alert and oriented X 3 Results - Vitals Vitals: Vital Signs - 24 hr 06/04/23 13:45 Temperature 36.2 C L Heart Rate 68 Respiratory 18 Rate Blood Pressure 134/67 H O2 Saturation 100 Oxygen O2 Source Room air - Labs Labs: Laboratory Tests 06/04/23 06/04/23 14:02 14:52 Urine Color LIGHT YELLOW Urine Clarity CLEAR Urine pH 6.5 Ur Specific [place] <=1.005 Urine Protein NEGATIVE Urine Glucose (UA) NEGATIVE Urine Ketones NEGATIVE Urine Occult Blood NEGATIVE Urine Nitrite NEGATIVE Urine Bilirubin NEGATIVE Urine Urobilinogen 0.2 (NORMAL) Ur Leukocyte Esterase NEGATIVE Ur Microscopic Review NOT INDICATED Urine Culture Comments NOT INDICATED Urine HCG, Qual NEGATIVE C. glabrata (PCR) NEGATIVE C. krusei (PCR) NEGATIVE Domitila species DNA POSITIVE A T. vaginalis (PCR) NEGATIVE Bact Vaginosis (PCR) NEGATIVE PD Medical Decision Making - ED course Complexity details: reviewed results, re-evaluated patient, considered differential, d/w patient ED course: Patient is well-appearing, nontoxic. Afebrile. Has chronic UTIs and states this feels similar. Her urinalysis is not consistent with infection, but she did urinate approximately 5 minutes before giving that sample. Given her symptoms and history, will place on antibiotics for home. Bacterial vaginitis swabs were also sent. These returned after discharge and she is positive for Domitila, Diflucan was sent to the pharmacy and I called and spoke with the patient to inform her of this. Patient is well-appearing, nontoxic. Afebrile. No evidence of sepsis. Patient counseled regarding signs and symptoms for which I believe and urgent re-evaluation would be necessary. Patient with good understanding of and agreement to plan and is comfortable going home at this time This document was made in part using voice recognition software. While efforts are made to proofread this document, sound alike and grammatical errors may occur. Departure - Departure Disposition: 01 Home, Self Care Clinical Impression: Cystitis, Domitila vaginitis Condition: Good Instructions: ED UTI Cystitis Female Follow-Up: LISA PATEL ARNP [Primary Care Provider] - Prescriptions: Fluconazole 150 mg PO ONCE #2 tablet Nitrofurantoin [Macrobid] 100 mg PO BID #10 cap Phenazopyridine HCl [Pyridium] 200 mg PO TID PRN #6 tablet PRN Reason: dysuria Comments: Your prescriptions were sent to [facility] in [place]. Please take all antibi otics until gone. The Pyridium will help with the dysuria. We have also sent off testing for bacterial vaginitis. I will follow-up on these results later today and call you if they are positive. You can also check the results with the patient portal. You should notice improvement in the next 24 hours. Please return if you worsen. Discharge Date/Time: 06/04/23 15:33
[2023-06-04 18:29] LABS: BACTERIAL VAGINOSIS DNA NEGATIVE (NEGATIVE); CANDIDA GLABRATA DNA NEGATIVE (NEGATIVE); CANDIDA GROUP DNA POSITIVE (NEGATIVE); CANDIDA KRUSEI DNA NEGATIVE (NEGATIVE); TRICHOMONAS VAGINALIS DNA NEGATIVE (NEGATIVE)
[2023-06-04 23:18] LABS: CHLAMYDIA TRACHOMATIS DNA NEGATIVE (NEGATIVE); NEISSERIA GONORRHOEAE DNA NEGATIVE (NEGATIVE); TRICHOMONAS VAGINALIS DNA NEGATIVE (NEGATIVE)
== END 2023-06-04 15:33 | disposition home or self-care (01) ==
LOC: ED 13:41
DX: N30.90 Cystitis, unspecified without hematuria (principal); B37.31 Acute candidiasis of vulva and vagina
CPT/HCPCS: 81001; 81003; 81025; 81514; 87086; 87491; 87591; 87661; 99283